=== PATIENT | female | born 1990 | race Caucasian/White ===

== ENCOUNTER → 2016-09-18 | Outpatient (CLI) | payer BC ==
[~2016-09-18] MED LIST: ANUSOL-HC CREAM30 G1 EXT; BACTRIM DS TABL1 TA1 PO; CLEOCIN; FLONASE16 GM; LORTAB 5/500 TA1 TA2 PO; LORTAB ELIXIR480 ML; ZYRTEC-D T1 TAB.SR .
--- NOTE | ~2016-09-18 | MR189 ---
[facility] A Service of [facility] RADIOLOGY TEXT RESULTS PATIENT: NAOMI DIA LOCATION: [facility] : 86 UNIT #: [id number] AGE: [address]: John Marvin Sr SEX: F ORDER DR: [id number] [facility] [address] [place], [place] [address] [id number] O MR#: [id number] Acc #: [id number] NAME: NAOMI DIA : 1990 SEX: F STUDY DATE/TIME: 09/18/2016 13:58 UNIT: [facility] ROOM: STUDY DESCRIPTION: MRV Head Wo Contrast Attending Physician: John Marvin M.D. Referring Physician: John Marvin M.D. Ordering Physician: John Marvin M.D. Primary Care Physician: Primary Care Physician No MRI CENTER REPORT This report is preliminary unless electronic signature is present. EXAM MR venogram HISTORY Benign intracranial hypertension. Chronic migraine headaches for entire life with syncopal episodes beginning June 2016. TECHNIQUE MR venography was performed with 2-D [id number] technique. FINDINGS The major dural venous sinuses are patent. There is no evidence of sinus thrombosis. No arteriovenous malformations are seen. No vascular abnormalities are noted. IMPRESSION Normal. Dictated by... Basilio Martínez M.D. THIS IS AN ELECTRONICALLY VERIFIED REPORT Basilio Martínez M.D. at 09/19/2016 4:28 PM MICHAEL/pauline TD: 09/19/2016 10:23 JOB #: [id number] MRI CENTER REPORT Page 1 of 1 COPY
== END | disposition home or self-care (01) ==
LOC: CMRI 12:48
DX: G93.2 Benign intracranial hypertension (principal)
CPT/HCPCS: 70544

== ENCOUNTER 2016-10-22 14:08 | Emergency (ER) | payer BC | END 2016-10-22 14:44 | disposition home or self-care (01) | LOC: CFTX 14:08 → CED 14:08 → CFTX 14:32 | DX: S00.93XA Contusion of unspecified part of head, initial encounter (principal); W22.8XXA Striking against or struck by other objects, initial encounter; Y92.009 Unspecified place in unspecified non-institutional (private) residence as the place of occurrence of the external cause | CPT/HCPCS: 99283 ==